=== PATIENT | male | born 1995 ===

== ENCOUNTER 2020-11-13 08:30 | Outpatient (CLI) | payer OTHER ==
[~2020-11-13] VITALS: Ht 165.1 cm; Wt 86.3 kg
[2020-11-13 09:16] VITALS: BP 112/67; PULSE 87; TEMP 98.6
--- NOTE | 2020-11-13 10:15 | NUR ---
Report to Linda Chicas.
[2020-11-13 12:52] VITALS: BP 125/75; PULSE 72
== END 2020-11-13 16:29 | disposition home or self-care (01) ==
LOC: COL.CAR 08:30
DX: R55 Syncope and collapse (principal)